=== PATIENT | female | born 1995 | race Caucasian/White ===

== ENCOUNTER 2018-01-17 00:07 | Emergency (ER) | payer SELFPAY ==
[~2018-01-17] VITALS: Ht 167.6 cm; Wt 118.2 kg
[~2018-01-17 00:07] MED LIST: AMOXICILLIN500 MG PO; CEPHALEXIN500 MG OR; EXCEDRI2 PO; FLEXERIL PO; LORTAB 5/3255 MG PO; LORTAB5 PO; MULTI ADULT GUM1 CHW PO; NEXPLANON68 MG SC; PREDNISONE50 MG PO; PROTONIX40 MG PO; ULTRAM50 M1 PO; ULTRAM50 MG PO
[2018-01-17 01:07] LABS: URINE BILIRUBIN - DIPSTICK NEGATIVE (NEGATIVE); URINE BLOOD DIPSTICK NEGATIVE (NEGATIVE); URINE COLOR YELLOW; URINE GLUCOSE - DIPSTICK NEGATIVE (NEGATIVE); URINE KETONE NEGATIVE (NEGATIVE); URINE LEUK ESTERASE NEGATIVE (NEGATIVE); URINE NITRITE - DIPSTICK NEGATIVE (Negative); URINE PH 5.5 (4.5-8.0); URINE PROTEIN - DIPSTICK NEGATIVE (NEG-TRACE); URINE SPECIFIC GRAVITY <=1.005; URINE UROBILINOGEN - DIPSTICK 0.2 E.U./dL (0.2)
[2018-01-17 01:36] LABS: URINE CLARITY CLEAR
[2018-01-17] MEDS ORDERED: FIORICET PO (02:24)
[2018-01-17] MEDS ORDERED: FLEXERIL PO (02:24)
[2018-01-17 02:35] VITALS: BP 106/66
== END 2018-01-17 02:35 | disposition home or self-care (01) | DRG 103 ==
LOC: ED 00:07
PROVIDERS: Emergency Medicine
DX: G43.909 Migraine, unspecified, not intractable, without status migrainosus (principal); M79.601 Pain in right arm; M54.2 Cervicalgia; M79.1 Myalgia; F17.290 Nicotine dependence, other tobacco product, uncomplicated; R11.2 Nausea with vomiting, unspecified

== ENCOUNTER 2018-07-30 13:29 | Emergency (ER) | payer BC ==
[~2018-07-30] VITALS: Ht 167.6 cm; Wt 90.1 kg
[~2018-07-30 13:29] MED LIST changes: +FIORICET PO
[2018-07-30 14:09] LABS: HEMATOCRIT 40.3 % (37.0-47.0); HEMOGLOBIN 13.3 g/dl (12.0-16.0); IMMATURE GRANULOCYTES 0.4 % (0.0-5.0); MEAN CELL VOLUME 89.2 fL CALC (80.0-100.0); MEAN CORPUSCULAR HGB 29.4 pG CALC (26.0-32.0); NEUT# 5.85 thou/uL (2.00-7.15); RED BLOOD COUNT 4.52 mill/uL (4.20-5.60); RED CELL DISTRI WIDTH 12.2 % (11.5-15.5)
[2018-07-30 14:10] LABS: URINE BILIRUBIN - DIPSTICK NEGATIVE (NEGATIVE); URINE BLOOD DIPSTICK NEGATIVE (NEGATIVE); URINE COLOR YELLOW; URINE GLUCOSE - DIPSTICK NEGATIVE (NEGATIVE); URINE KETONE NEGATIVE (NEGATIVE); URINE LEUK ESTERASE NEGATIVE (NEGATIVE); URINE NITRITE - DIPSTICK NEGATIVE (Negative); URINE PH 5.5 (4.5-8.0); URINE PROTEIN - DIPSTICK NEGATIVE (NEG-TRACE); URINE SPECIFIC GRAVITY <=1.005; URINE UROBILINOGEN - DIPSTICK 0.2 E.U./dL (0.2)
[2018-07-30 14:21] LABS: BUN 4 mg/dL (7-17); BUN/CREATININE RATIO 6 (12-20 (CALC)); CARBON DIOXIDE 26 mmol/l (22-30); CHLORIDE 97 mmol/l (95-108); CREATININE 0.8 mg/dL (0.5-1.0); GFR > 60 ML/MIN (>=60 (CALC)); GFR FOR AFR.AMER. > 60 ML/MIN (>=60 (CALC)); POTASSIUM 3.6 mmol/l (3.5-5.1)
[2018-07-30 14:24] LABS: ANION GAP 19 (6-22 (CALC)); SODIUM 138 mmol/l (137-146)
[2018-07-30 15:06] VITALS: BP 103/51
== END 2018-07-30 15:47 | disposition home or self-care (01) | DRG 951 ==
LOC: ED 13:29
PROVIDERS: Family Medicine
DX: F17.210 Nicotine dependence, cigarettes, uncomplicated (principal); R55 Syncope and collapse

== ENCOUNTER 2023-03-02 23:14 | Emergency (ER) | payer OTHER ==
[~2023-03-02] VITALS: Ht 167.6 cm; Wt 100.0 kg
[2023-03-02 23:19] VITALS: BP 92/64
[2023-03-02 23:30] VITALS: BP 101/56
[2023-03-02 23:45] VITALS: BP 91/56
[2023-03-03] VITALS (8 sets, daily range): BP systolic 71–104; BP diastolic 50–76
== END 2023-03-03 02:42 | disposition home or self-care (01) ==
LOC: ED 23:14
DX: S86.911A Strain of unspecified muscle(s) and tendon(s) at lower leg level, right leg, initial encounter (principal); F17.200 Nicotine dependence, unspecified, uncomplicated; W01.0XXA Fall on same level from slipping, tripping and stumbling without subsequent striking against object, initial encounter; Y92.009 Unspecified place in unspecified non-institutional (private) residence as the place of occurrence of the external cause